=== PATIENT | female | born 1975 | race Two or more races ===

== ENCOUNTER 2018-05-04 10:56 | Emergency (ER) | payer MEDICAID, OTHER ==
[~2018-05-04] VITALS: Ht 152.4 cm; Wt 61.4 kg
[2018-05-04 11:03] VITALS: BP 111/50
[2018-05-04] MEDS ORDERED: ACETAMINOPHEN 500 MG TABLET ONE (11:27)
--- NOTE | 2018-05-04 11:40 | NUR ---
MEDICATED PT WITH A GRAM OF TYLENOL PER DR. AIKEN.
[2018-05-04] MEDS ORDERED: DEXAMETHASONE 4 MG TABLET ONE (11:48)
[2018-05-04] MEDS ORDERED: IBUPROFEN 200 MG TABLET ONE (11:48)
--- NOTE | 2018-05-04 11:55 | NUR ---
TASK RN: FIRST CONTACT WITH PT. PROVIDING MEDICATION PER EMAR. REQUESTING MEDICATIONS FROM PHARMACY. NADN. NO NEEDS EXPRESSED AT THIS TIME.
[2018-05-04] MEDS ORDERED: IBUPROFEN 200 MG TABLET PO ONE (12:00)
[2018-05-04] MEDS ORDERED: DEXAMETHASONE 4 MG TABLET PO ONE (12:00)
[2018-05-04] MEDS ORDERED: AMOXICILLIN 500 MG CAPSULE PO ONE (12:00)
--- NOTE | 2018-05-04 12:05 | NUR ---
TASK RN: Provided pt crackers and ice water per request. No needs requested at this time. All safety measures in place. Call light within reach.
--- NOTE | 2018-05-04 12:24 | NUR ---
TASK RN: Patient given discharge instructions and they have confirmed that they understand the instructions. Patient ambulatory with steady gait. Pt left with all personal belongings, discharge paper work, and prescription.
== END 2018-05-04 12:29 | disposition home or self-care (01) ==
LOC: ED 12:15
DX: J02.0 Streptococcal pharyngitis (principal); R51 Headache; H92.09 Otalgia, unspecified ear
CPT/HCPCS: 99284